=== PATIENT | female | born 1965 | race Caucasian/White ===

== ENCOUNTER 2017-06-27 22:33 | Day surgery (SDC) | payer OTHER ==
[2017-06-27 22:54] VITALS: BMI 23.6
[2017-06-28] MEDS ORDERED: SODIUM CHLORIDE 1,000 ML IV STA (00:05)
--- NOTE | 2017-06-28 00:05 | PDOC ---
History of Present Illness - General Chief Complaint: Vaginal Bleeding Stated Complaint: PCP SENT/BLOOD TRANSFUSION Time Seen by Provider: 06/27/17 23:59 - History of Present Illness Initial Comments: 06/28/17 00:16 52-year-old female complains of heavy vaginal bleeding for 2 weeks. Patient was seen by Dr. Hansen today and was called back to the ER for hemoglobin of 6.4. Patient reports dizziness and lightheadedness. Patient denies palpitations and shortness of breath at this time. Patient reports that right now changing pads every 2-3 hours. For the last 2 weeks on and off patient has been changing pads every half an hour and is passing a lot of clots.atient was sent management of acute anemia. past medical : Knee surgery Past History - Past Medical History Allergies/Adverse Reactions: Allergies Allergy/AdvReac Type Severity Reaction Status Date / Time No Known Allergies Allergy Verified 06/27/17 22:35 COPD: No - Surgical History Orthopedic Surgery: Yes - Suicide/Smoking/Psychosocial Hx Smoking History: Never smoked Review of Systems - Review of Systems Able to Perform ROS?: Yes Is the patient limited [place] proficient: No Constitutional: Yes: Weakness Respiratory: No: Symptoms reported, See HPI, Cough, Orthopnea, Shortness of Breath, SOB with Exertion, SOB at Rest, Stridor, Wheezing, Productive cough, Hemoptysis, Other Cardiac (ROS): No: Symptoms Reported, See HPI, Chest Pain, Edema, Irregular Heart Rate, Lightheadedness, Palpitations, Syncope, Chest Tightness, Other Neurological: Yes: Dizziness. No: Symptoms reported, See HPI, Headache, Numbness, Paresthesia, Pre-Existing Deficit, Seizure, Tingling, Tremors, Weakness, Unsteady Gait, Ataxia, Other *Physical Exam - Vital Signs Last Vital Signs Temp Pulse Resp BP Pulse Ox 99.2 F 92 H 18 135/78 100 06/27/17 22:36 06/27/17 22:36 06/27/17 22:36 06/27/17 22:36 06/27/17 22:36 - Physical Exam General Appearance: Yes: Appropriately Dressed Gastrointestinal/Abdominal: positive: Normal Bowel Sounds, Other (pelvic areatenderness) Musculoskeletal: positive: Normal Inspection Extremity: positive: Normal Capillary Refill Integumentary: positive: Normal Color, Dry, Warm Neurologic: positive: Fully Oriented, Alert Heart Score/ECG Review - ECG Intrepretation Rhythm: Regular Rhythm Comment:: 06/28/17 04:26 NSR: 68 ED Treatment Course - LABORATORY CBC & Chemistry Diagram: 06/28/17 00:28 06/28/17 00:28 Progress Note - Progress Note Progress Note: A: Anemia DUB P: cbc cmp type and screen PRBCs patient to be admitted for acute blood loss, blood transfusion. *DC/Admit/Observation/Transfer Diagnosis at time of Disposition: Vaginal bleeding, DUB (dysfunctional uterine bleeding) Anemia Qualifiers: Anemia type: iron deficiency Iron deficiency anemia type: chronic blood loss Qualified Code(s): D50.0 - Iron deficiency anemia secondary to blood loss ( chronic) - Discharge Dispostion Admit: Yes - Referrals - Patient Instructions - Post Discharge Activity
[2017-06-28 00:56] LABS: BASOPHIL 0.5 % (0-2.0); EOSINOPHIL 1.9 % (0-4.5); MCH 25.4 pg (25.7-33.7); MCHC 32.2 g/dl (32.0-36.0); MEAN CELL VOLUME 78.7 fl (80-96); MEAN PLT VOLUME 8.1 fl (7.5-11.1); NEUTROPHILS 52.6 % (42.8-82.8); PLATELET COUNT 337 K/MM3 (134-434); RDW 16.7 % (11.6-15.6); WHITE BLOOD COUNT 4.5 K/mm3 (4.0-10.0)
[2017-06-28 01:08] LABS: INR 1.01 (0.82-1.09); PROTHROMBIN TIME (PATIENT) 11.4 SEC (9.98-11.88)
[2017-06-28 01:20] LABS: ALBUMIN 3.2 g/dl (3.4-5.0); ALK PHOS 65 U/L (45-117); ANION GAP 6 (8-16); BILIRUBIN,TOTAL 0.6 mg/dL (0.2-1.0); CALCIUM 8.4 mg/dL (8.5-10.1); CO2 29 mmol/L (21-32); CREATININE 0.6 mg/dL (0.55-1.02); GLUCOSE,RANDOM 99 mg/dL (74-106); SGOT/AST 10 U/L (15-37); SGPT/ALT 14 U/L (12-78)
[2017-06-28 09:21] LABS: URINE APPEARANCE CLEAR; URINE BILIRUBIN NEGATIVE (NEGATIVE); URINE BLOOD 3+ (NEGATIVE); URINE COLOR LT. YELLOW; URINE GLUCOSE (UA) NEGATIVE (NEGATIVE); URINE KETONE NEGATIVE (NEGATIVE); URINE NITRITE NEGATIVE (NEGATIVE); URINE PROTEIN NEGATIVE (NEGATIVE); URINE UROBILINOGEN 0.2 mg/dL (0.2-1.0)
[2017-06-28] MEDS ORDERED: ACETAMINOPHEN 325 MG TABLET (FP) PO PRN (09:24)
--- NOTE | 2017-06-28 09:50 | HP ---
Admitting History and Physical - Past Medical History ...LMP: 06/14/17 ...: No - Smoking History Smoking history: Never smoked - Alcohol/Substance Use Hx Alcohol Use: No Home Medications - Allergies Allergies/Adverse Reactions: Allergies Allergy/AdvReac Type Severity Reaction Status Date / Time No Known Allergies Allergy Verified 06/27/17 22:35 Physical Examination Vital Signs: Vital Signs Temperature 98.2 F 06/28/17 03:50 Pulse Rate 74 06/28/17 03:50 Respiratory Rate 18 06/28/17 03:50 Blood Pressure 88/54 06/28/17 03:50 O2 Sat by Pulse Oximetry (%) 100 06/28/17 03:50 Labs: CBC, BMP 06/28/17 00:28 06/28/17 00:28
[2017-06-28 09:53] LABS: URINE BACTERIA MODERATE /hpf (NONE SEEN); URINE RBC <1 /hpf (0-3); URINE WBC <1 /hpf (3-5)
--- NOTE | 2017-06-28 09:53 | HP ---
Past Medical History - Primary Care Physician PCP:: Deepak Hansen - Admission Chief Complaint: 52yo female with menorrhagia and severe symptomatic anemia admitted for tx of anemia History of Present Illness: Pt with h/o uterine fibroids and bleeding x 2wks. Pt was seen yesterday in the office and CBC was sent that showed a Hct of 19%. The pt was recalled to ER for tx. In ER the pt reported feeling lightheaded, fatigue, tired. However, her bleeding stopped. 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: No: Alzheimer's, CVA, Dementia, Migraine, Multiple Sclerosis, Peripheral Neuropathy, Parkinson's, Seizure, Syncope, TIA, Vertigo, Other Cardiovascular: No: AFIB, Aneurysm, Aortic Insufficiency, Aortic Stenosis, CAD, CHF, Deep Vein Thrombosis, HTN, Hyperlipdemia, [place], Mitral Insufficiency, Mitral Stenosis, Murmur, Pulmonary Hypertension, Other Pulmonary: No: Asthma, Bronchitis, Cancer, COPD, O2 Dependent, Pneumonia, Previously Intubated, Pulmonary Embolus, Pulmonary Fibrosis, Sleep Apnea, Other Gastrointestinal: No: Ascites, Cancer, Constipation, Crohn's Disease, Diverticulitis, Diverticulosis, Esophageal Varices, Gastritis, GERD, GI Bleed, Hemorrhoids, Hiatal Hernia, Inflamatory Bowel Disease, Irritable Bowel Disease, Pancreatitis, Peptic Ulcer Disease, Ulcerative Colitis, Other Hepatobiliary: No: Cirrhosis, Cholelithiasis, Cholecystitis, Choledocholithiasis , Hepatitis A, Hepatitis B, Hepatitis C, Other Renal/: No: Renal Failure, Renal Inusuff, BPH, Cancer, Hematuria, Hemodialysis , Neurogenic Bladder, Renal Calculi, UTI, Other Reproductive: Yes: Fibroids ...: 2 ...Para: 1 ...Spon : 1 Heme/Onc: Yes: Anemia Infectious Disease: No: AIDS, C-Diff, Herpes Zoster, HIV, MRSA, STD's, Tuberculosis, VREF, Other Psych: No: Addictions, Anxiety, Bipolar, Depression, Panic, Psychosis, Schizophrenia, Other Musculoskeletal: No: Bursitis, Chronic low back pain, Hemiparesis, Hemiplegia, Osteoarthritis, Paraplegia, Other Rheumatology: No: Fibromyalgia, Gout, Lupus, Rheumatoid Arthritis, Sarcoidosis, Vasculitis, Other ENT: No: Allergic Rhinitis, Sinusitis, Other Endocrine: No: Cristopher's Disease, Hannah's Disease, Diabetes Insipidus, Diabetes Mellitus, Hyperparathyroidism, Hyperthyroidism, Hypothyroidism, Osteopenia, SIADH, Other Dermatology: No: Basal Cell, Cellulitis, Eczema, Melanoma, Psoriasis, Squamous Cell, Other - Past Surgical History Past Surgical History: Yes: Arthrosocopy (right knee) Hx Myomectomy: No Hx Transabdominal Cerclage: No Additional Surgical History: ESSURE sterilization - Smoking History Smoking history: Never smoked - Alcohol/Substance Use Hx Alcohol Use: No Home Medications - Allergies Allergies/Adverse Reactions: Allergies Allergy/AdvReac Type Severity Reaction Status Date / Time No Known Allergies Allergy Verified 06/27/17 22:35 Family Disease History - Family Disease History Family Disease History: CA: Father (Non-Hodgkin's lymphoma) Other Family History: Aunt- ovarian ca Review of Systems - Review of Systems Constitutional: reports: Weakness Eyes: reports: No Symptoms HENT: reports: No Symptoms Neck: reports: No Symptoms Cardiovascular: reports: No Symptoms Respiratory: reports: No Symptoms Gastrointestinal: reports: No Symptoms Genitourinary: reports: Vaginal Bleeding (now stopped) Breasts: reports: No Symptoms Reported Musculoskeletal: reports: No Symptoms Integumentary: reports: No Symptoms Neurological: reports: No Symptoms Endocrine: reports: No Symptoms Hematology/Lymphatic: reports: No Symptoms Psychiatric: reports: No Symptoms Physical Exam-INSOLE ROUNDER Vital Signs: Vital Signs Temperature 98.2 F 06/28/17 03:50 Pulse Rate 74 06/28/17 03:50 Respiratory Rate 18 06/28/17 03:50 Blood Pressure 88/54 06/28/17 03:50 O2 Sat by Pulse Oximetry (%) 100 06/28/17 03:50 Constitutional: Yes: Well Nourished, No Distress, Calm Eyes: Yes: WNL, Conjunctiva Clear, EOM Intact HENT: Yes: WNL, Atraumatic, Normocephalic Neck: Yes: WNL, Supple, Trachea Midline Cardiovascular: Yes: WNL, Regular Rate and Rhythm Respiratory: Yes: WNL, Regular, CTA Bilaterally Gastrointestinal: Yes: WNL, Normal Bowel Sounds, Soft ...Rectal Exam: Yes: Deferred Renal/: Yes: WNL Pelvis: Yes: WNL External Genitalia: Yes: Normal Internal Exam Deferred: No Vaginal Exam: Yes: Normal Cervix: Yes: Normal Uterus: Yes: Enlarged Adnexa: Normal: Left, Right Musculoskeletal: Yes: WNL Extremities: Yes: WNL Edema: No Integumentary: Yes: WNL Neurological: Yes: WNL, Alert, Oriented ...Motor Strength: WNL Psychiatric: Yes: WNL, Alert, Oriented Labs: CBC, BMP 06/28/17 00:28 06/28/17 00:28 Assessment/Plan 52yo female with menorrhagia and severe symptomatic anemia admitted for tx of anemia. Pt is finishing 2nd unit PRBC and is feeling better. She stopped bleeding. Plan to d/c pt home. We discussed tx plans as outpatient and pt will see me in-office next week. Plan to check CBC prior to d/c
--- NOTE | 2017-06-28 10:20 | EKG ---
Test Reason : Blood Pressure : / mmHG Vent. Rate : 070 BPM Atrial Rate : 070 BPM P-R Int : 188 ms QRS Dur : 078 ms QT Int : 376 ms P-R-T Axes : 049 034 051 degrees QTc Int : 406 ms NORMAL SINUS RHYTHM NORMAL ECG NO PREVIOUS ECGS AVAILABLE Confirmed by GLORIA SANTIAGO, PRECIOUS ([id number]) on 06/28/2017 10:20:09 AM Referred By: Confirmed By:PRECIOUS CASTRO MD
[2017-06-28] MEDS: IBUPROFEN 600 MG TABLET (FP) PO PRN ×2 (10:52→18:15)
[2017-06-28 12:40] LABS: BASOPHIL 0.7 % (0-2.0); EOSINOPHIL 2.7 % (0-4.5); MCH 26.7 pg (25.7-33.7); MCHC 33.3 g/dl (32.0-36.0); MEAN CELL VOLUME 80.1 fl (80-96); MEAN PLT VOLUME 7.8 fl (7.5-11.1); NEUTROPHILS 50.9 % (42.8-82.8); PLATELET COUNT 308 K/MM3 (134-434); RDW 17.2 % (11.6-15.6); WHITE BLOOD COUNT 4.1 K/mm3 (4.0-10.0)
[2017-06-28 16:20] LABS: MCHC 33.9 g/dl (32.0-36.0); MEAN CELL VOLUME 79.7 fl (80-96); MEAN PLT VOLUME 8.6 fl (7.5-11.1); PLATELET COUNT 317 K/MM3 (134-434); RDW 17.2 % (11.6-15.6); WHITE BLOOD COUNT 5.1 K/mm3 (4.0-10.0)
[2017-06-28 17:25] VITALS: BP 115/61; PULSE 76; TEMP 99.1
[2017-06-28 17:51] LABS: URINE LEUK ESTERASE Negative (NEGATIVE)
== END 2017-06-29 00:02 | disposition home or self-care (01) ==
LOC: JER 22:33 → JASUSAT 06-28 00:06 → UNDOADMIN 06-28 00:06 → JERBED 06-28 00:06 → UNDOADMIN 06-28 00:44 → JERBED 06-28 00:44 → J8W 06-28 03:51 → JASUSAT 06-29 00:02
PROVIDERS: ATTEND Obstetrics & Gynecology
PROC: 30233N1 Transfusion of Nonautologous Red Blood Cells into Peripheral Vein, Percutaneous Approach (ICD-10-PCS; principal; 2017-06-28)
DX: N92.0 Excessive and frequent menstruation with regular cycle (principal); D64.9 Anemia, unspecified
CPT/HCPCS: 36415; 36430; 36511; 80053; 81003; 81015; 85025; 85027; 85610; 86850; 86900; 86901; 86922; 93005; 93010; 99285-25; P9038; P9058

== ENCOUNTER 2017-07-13 12:30 | Day surgery (SDC) | payer OTHER ==
[2017-07-11 17:59] VITALS: BMI 23.6
[2017-07-13] MEDS ORDERED: ONDANSETRON 4 MG/2 ML VIAL IVPUSH PRN (13:56)
[2017-07-13] MEDS ORDERED: PROMETHAZINE HCL 25 MG/1 ML VIAL IVPUSH PRN (13:56)
[2017-07-13] MEDS ORDERED: oxyCODONE HCL 5 MG TABLET PO PRN (13:56)
[2017-07-13] MEDS ORDERED: MIDAZOLAM HCL 2 MG/2 ML SINGLE DOSE VIAL ONE (14:26)
[2017-07-13] MEDS ORDERED: PROPOFOL 20 ML ONE (14:30)
--- NOTE | 2017-07-13 14:38 | HP ---
Past Medical History - Primary Care Physician PCP:: Deepak Hansen - Admission Chief Complaint: 52yo female with menorrhagia and anemia, s/p recent blood transfusion, again with heavy menses, admitted for Hystersocopy, D&C, endometrial ablation. History of Present Illness: The pt was admitted for a blood transfusion recently due to severe anemia. She stopped bleeding while in the hospital and was discharged. The pt was supposed to have endometrial ablation on but began bleeding heavily again and the surgery was moved to 07/13/2017. 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: No: Alzheimer's, CVA, Dementia, Migraine, Multiple Sclerosis, Peripheral Neuropathy, Parkinson's, Seizure, Syncope, TIA, Vertigo, Other Cardiovascular: No: AFIB, Aneurysm, Aortic Insufficiency, Aortic Stenosis, CAD, CHF, Deep Vein Thrombosis, HTN, Hyperlipdemia, [place], Mitral Insufficiency, Mitral Stenosis, Murmur, Pulmonary Hypertension, Other Pulmonary: No: Asthma, Bronchitis, Cancer, COPD, O2 Dependent, Pneumonia, Previously Intubated, Pulmonary Embolus, Pulmonary Fibrosis, Sleep Apnea, Other Gastrointestinal: No: Ascites, Cancer, Constipation, Crohn's Disease, Diverticulitis, Diverticulosis, Esophageal Varices, Gastritis, GERD, GI Bleed, Hemorrhoids, Hiatal Hernia, Inflamatory Bowel Disease, Irritable Bowel Disease, Pancreatitis, Peptic Ulcer Disease, Ulcerative Colitis, Other Hepatobiliary: No: Cirrhosis, Cholelithiasis, Cholecystitis, Choledocholithiasis , Hepatitis A, Hepatitis B, Hepatitis C, Other Renal/: No: Renal Failure, Renal Inusuff, BPH, Cancer, Hematuria, Hemodialysis , Neurogenic Bladder, Renal Calculi, UTI, Other Reproductive: Yes: Fibroids Heme/Onc: Yes: Anemia Infectious Disease: No: AIDS, C-Diff, Herpes Zoster, HIV, MRSA, STD's, Tuberculosis, VREF, Other Psych: No: Addictions, Anxiety, Bipolar, Depression, Panic, Psychosis, Schizophrenia, Other Musculoskeletal: No: Bursitis, Chronic low back pain, Hemiparesis, Hemiplegia, Osteoarthritis, Paraplegia, Other Rheumatology: No: Fibromyalgia, Gout, Lupus, Rheumatoid Arthritis, Sarcoidosis, Vasculitis, Other ENT: No: Allergic Rhinitis, Sinusitis, Other Endocrine: No: Cristopher's Disease, Hannah's Disease, Diabetes Insipidus, Diabetes Mellitus, Hyperparathyroidism, Hyperthyroidism, Hypothyroidism, Osteopenia, SIADH, Other Dermatology: No: Basal Cell, Cellulitis, Eczema, Melanoma, Psoriasis, Squamous Cell, Other - Past Surgical History Past Surgical History: Yes: Arthrosocopy (right knee), Tubal Ligation (ESSURE) Hx Myomectomy: No Hx Transabdominal Cerclage: No - Smoking History Smoking history: Never smoked - Alcohol/Substance Use Hx Alcohol Use: No History of Substance Use: reports: None - Social History ADL: Independent History of Recent Travel: No Home Medications - Allergies Allergies/Adverse Reactions: Allergies Allergy/AdvReac Type Severity Reaction Status Date / Time No Known Allergies Allergy Verified 07/13/17 12:53 - Home Medications Home Medications: Ambulatory Orders NK [No Known Home Medication] 07/11/17 Family Disease History - Family Disease History Family Disease History: CA: Father (Non-Hodgkin's lymphoma) Other Family History: Aunt: ovarian cancer Review of Systems - Review of Systems Constitutional: reports: No Symptoms Eyes: reports: No Symptoms HENT: reports: No Symptoms Neck: reports: No Symptoms Cardiovascular: reports: No Symptoms Respiratory: reports: No Symptoms Gastrointestinal: reports: No Symptoms Genitourinary: reports: Vaginal Bleeding Breasts: reports: No Symptoms Reported Musculoskeletal: reports: No Symptoms Integumentary: reports: No Symptoms Neurological: reports: No Symptoms Endocrine: reports: No Symptoms Hematology/Lymphatic: reports: No Symptoms Psychiatric: reports: No Symptoms Pain Intensity: 0 Physical Exam-QUALITY REP Vital Signs: Vital Signs Temperature 98.4 F 07/13/17 12:51 Pulse Rate 94 H 07/13/17 12:51 Respiratory Rate 20 07/13/17 12:51 Blood Pressure 133/66 07/13/17 12:51 O2 Sat by Pulse Oximetry (%) 100 07/13/17 12:50 Constitutional: Yes: Well Nourished, No Distress, Calm Eyes: Yes: WNL, Conjunctiva Clear HENT: Yes: WNL, Atraumatic, Normocephalic Neck: Yes: WNL, Supple, Trachea Midline Cardiovascular: Yes: WNL, Regular Rate and Rhythm Respiratory: Yes: WNL, Regular, CTA Bilaterally Gastrointestinal: Yes: WNL, Normal Bowel Sounds, Soft ...Rectal Exam: Yes: Deferred Renal/: Yes: WNL External Genitalia: Yes: Normal Internal Exam Deferred: No Vaginal Exam: Yes: Bleeding (heavy, (+) clots, bleeding actively) Cervix: Yes: Normal Uterus: Yes: Enlarged, Firm, Lumpy Adnexa: Normal: Left, Right Musculoskeletal: Yes: WNL Extremities: Yes: WNL Edema: No Integumentary: Yes: WNL Neurological: Yes: WNL, Alert, Oriented ...Motor Strength: WNL Psychiatric: Yes: WNL, Alert, Oriented Imaging - Results Ultrasound: Report Reviewed Assessment/Plan 52yo female with menorrhagia and anemia, s/p recent blood transfusion, again with heavy menses, admitted for Hystersocopy, D&C, endometrial ablation. She declined a hysterectomy. We had discussed the risks, benefits, alternatives of surgery at length including but not limited to infection, bleeding, scarring, perforation, amenorrhea, infertility, hysterectomy, etc. The pt verbalized understanding and requested to proceed with surgery. I emphasized that all surgeries have risks and no guarantees can be provided.
[2017-07-13] MEDS ORDERED: LIDOCAINE HCL/PF 2% SDV 5ML VIAL ONE (14:40)
[2017-07-13] MEDS ORDERED: KETOROLAC TROMETHAMINE 30 MG/1 ML VIAL ONE (14:40)
[2017-07-13] MEDS ORDERED: DEXAMETHASONE SOD PHOSPHATE 4 MG/1 ML VIAL ONE (14:40)
[2017-07-13] MEDS ORDERED: IBUPROFEN 800 MG/8 ML IJ IVPB PRN (15:45)
[2017-07-13] MEDS ORDERED: ACETAMINOPHEN 1000 MG/100 ML VIAL (NON FORMULARY) IVPB PRN (15:45)
--- NOTE | 2017-07-13 15:48 | OP ---
Operative Note - Note: Operative Date: 07/13/17 Pre-Operative Diagnosis: Menorragia, Anemia, Fibroid uterus Operation: Hysteroscopy, D&C, Endometrial Ablation with HTA GEnesys Findings: Large fibroid uterus, enlarged uterine cavity ~11cm. Post-Operative Diagnosis: Same as Pre-op Surgeon: Deepak Hansen Anesthesiologist/SUSTAINABLE LANDSCAPE ARCHITECT: Leelee Ryan MD Anesthesia: General Specimens Removed: Endometrial curettings Estimated Blood Loss (mls): 100 (pt was actively bleeding prior to procedure; 50ml clots removed from vagina) Blood Volume Replaced (mls): 0 Fluid Volume Replaced (mls): 700 Operative Report Dictated: Yes
[2017-07-13 16:48] VITALS: TEMP 97.8
[2017-07-13 18:07] VITALS: BP 110/68; PULSE 85
--- NOTE | 2017-07-14 15:10 | OP ---
DATE OF OPERATION: 07/13/2017 PREOPERATIVE DIAGNOSES: Menorrhagia, anemia, fibroid uterus. POSTOPERATIVE DIAGNOSES: Menorrhagia, anemia, fibroid uterus. PROCEDURE: Hysteroscopy, dilatation and curettage, endometrial ablation with the KDW System. SURGEON: Deepak Hansen MD ANESTHESIOLOGIST: Leelee Ryan MD ANESTHESIA: General. COMPLICATIONS: None. PATHOLOGY: Endometrial curettings. INTRAVENOUS FLUIDS: 700 mL of crystalloids. ESTIMATED BLOOD LOSS: Approximately 100 mL (patient was actively bleeding prior to procedure, and approximately 50 mL of clots were removed from vagina prior to procedure). FINDINGS: Examination under anesthesia revealed active uterine bleeding which was noted to be pretty heavy. The uterus was found to be enlarged and bulky, approximately 14 weeks' size. No adnexal masses were noted. Upon hysteroscopy, the uterine cavity was noted to be enlarged. There were several submucosal myomas. There were no other lesions noted during hysteroscopy. The entire endometrial ablation was done under direct real-time hysteroscopy surveillance without any complications. Good hemostasis was noted at the end of the procedure. DESCRIPTION OF PROCEDURE: The patient was met preoperatively. The risks, benefits, and alternatives of surgery were discussed in details. All questions were answered. The patient was then brought to the OR with the IV running. She was placed on the surgical table in a supine position. General anesthesia was achieved without difficulty. The patient was then placed in a dorsal lithotomy position using adjustable Smith stirrups. The patient was prepped and draped in the usual sterile fashion. Upon examination, active uterine bleeding was noted which appeared to be heavy with multiple blood clots. Approximately 50-60 mL of blood clots was evacuated from the vagina prior to procedure. Once the patient was prepped and draped in a sterile fashion, a timeout procedure was done per standard protocol. A sterile speculum was introduced inside the vagina. The cervix was grasped with a single-tooth tenaculum. The cervical os did not need to be dilated and was able to accommodate a sharp curette without difficulty. Sharp curettage was performed, and the tissue was sent to Pathology for evaluation. A hysteroscope was then introduced into the uterine cavity. The entire uterine cavity was examined and appeared to be enlarged. There were several submucosal myomas noted and no other lesions. The closed-loop system was then established using an KDW endometrial ablation system. The endometrial ablation was then initiated and completed without complications. The entire surgery was done under direct real-time visualization with the hysteroscope. Once the procedure was completed, good hemostasis was noted. The instruments were then removed from the patient. Sponge, lap, instrument counts were correct. Once again, good hemostasis was confirmed. The patient was returned to supine position and transferred to recovery room awake and in stable condition. Rocio [id number]
--- NOTE | 2017-07-15 11:48 | PATH ---
Surgical Pathology Report Patient Name: JAEL SALES [facility]. Rec. #: [id number] /Age/Gender: 1965 (Age: 52) / F Account: [id number] Location: [facility] SURGICAL Taken: 07/13/2017 Received: 07/14/2017 Reported: 07/15/2017 Physicians: Deepak Hansen M.D. Specimen(s) Received ENDOMETRIAL CURETTINGS Clinical History Menorrhagia, anemia, fibroid Final Diagnosis ENDOMETRIUM, CURETTING: ENDOMETRIUM WITH STROMAL AND GLANDULAR BREAKDOWN. NO ENDOMETRIAL HYPERPLASIA OR CARCINOMA IDENTIFIED. FOCAL AREA SUGGESTIVE OF BENIGN ENDOMETRIAL POLYP PRESENT. Comment: Recommend correlation with clinical and radiologic findings and follow up as clinically indicated. Electronically Signed Adán Goldsmith M.D. Gross Description Received in formalin labeled "endometrial curettings," is a 5.3 x 4.5 x 0.7 cm aggregate of lópez-brown soft tissue fragments. The formalin is filtered and the specimen is entirely submitted in 5 cassettes. /07/14/2017 saudi07/14/2017
== END 2017-07-13 18:00 | disposition home or self-care (01) ==
LOC: JASU-SURG 12:30
PROVIDERS: ATTEND Obstetrics & Gynecology
PROC: 0U5B8ZZ Destruction of Endometrium, Via Natural or Artificial Opening Endoscopic (ICD-10-PCS; principal; 2017-07-13 14:00)
PROC: 0UDB8ZX Extraction of Endometrium, Via Natural or Artificial Opening Endoscopic, Diagnostic (ICD-10-PCS; 2017-07-13 14:00)
DX: N92.0 Excessive and frequent menstruation with regular cycle (principal); D25.9 Leiomyoma of uterus, unspecified; D64.9 Anemia, unspecified
CPT/HCPCS: 88305-TC; 94760